=== PATIENT | female | born 2000 | race African-American/Black ===

== ENCOUNTER 2018-09-09 22:37 | Emergency (ER) | payer OTHER ==
[~2018-09-09] VITALS: Ht 157.5 cm; Wt 72.6 kg
[2018-09-10] MEDS ORDERED: LEVSIN/SL0.125 MG SL (03:23)
[2018-09-10] MEDS ORDERED: DUI500 PO (03:23)
== END 2018-09-10 03:45 | disposition home or self-care (01) ==
LOC: ER 22:37
DX: K80.10 Calculus of gallbladder with chronic cholecystitis without obstruction (principal); N39.0 Urinary tract infection, site not specified; R10.11 Right upper quadrant pain